=== PATIENT | male | born 2005 | race Caucasian/White ===

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

== ENCOUNTER 2025-06-23 18:57 | Inpatient (IN) ==
--- NOTE | 2025-06-23 19:22 | Emergency Department Note ---
Impression & Plan Depression with suicidal ideation, Drug abuse ED Provider Note NAME: LEANNE ALCARAZ AGE: 19 SEX: M : 2005 ARRIVES VIA: Walk-In INFORMANT: Patient, ED PROVIDER(S): Daniel Tariq DO CHIEF COMPLAINT: Mental health evaluation HPI: The patient is a 19-year-old male who presented to the emergency department for mental health evaluation. The patient was seen in our facility prior to this visit. He was just discharged and then registered back again. The patient was seen earlier because of epigastric pain. He was seen at an outside clinic. At that clinic visit the patient was felt to be overdosed on opiates. He received Narcan with good improvement of his symptoms. He was found to be bradycardic so 911 was called and the patient was evaluated in our emergency department. No obvious abnormalities were found on that evaluation. The patient was discharged home. The patient did admit to methamphetamine use at that time. Today he returns complaining of thoughts of self-harm. He is thinking about taking overdose of pills. He has been suffering from depression. ROS: See above HPI for pertinent positives & negatives. A total of 10 systems reviewed and were otherwise negative. PAST MEDICAL HISTORY: See Below PAST SURGICAL HISTORY: See Below FAMILY HISTORY: See Below SOCIAL HISTORY: See Below HOME MEDICATIONS: See Below ALLERGIES: See Below VITALS: See Below PHYSICAL EXAMINATION: GENERAL: Patient is awake alert in no acute distress patient is resting comfortably and showing no signs of anxiety EYES: The conjunctivae are clear. The pupils are round and reactive. EARS, NOSE, MOUTH AND THROAT: The nose is without any evidence of any deformity. NECK: The neck is nontender and supple. RESPIRATORY: Normal respiratory effort is noted there is no evidence of wheezing rhonchi or rales CARDIOVASCULAR: Regular rate and rhythm noted there no murmurs rubs or gallops normal S1 normal S2. GASTROINTESTINAL: The abdomen is soft. Abdomen is nontender. MUSCULOSKELETAL/EXTREMITIES: There is no evidence of gross deformity full range of motion is noted in the hips and shoulders. SKIN: There is no obvious evidence of any rash. There are no petechiae, pallor or cyanosis noted. NEUROLOGIC: Patient is awake alert and oriented x3 strength is symmetric patellar reflexes are 2+ bilaterally PSYCH: The patient makes good eye contact mostly evaluation. The patient's affect is flat. Patient is currently admitting to suicidal ideation with a plan to take pills and overdose. MEDICAL DECISION MAKING: The patient is a 19-year-old male who presented to the emergency department for mental health evaluation. The patient was recently discharged in our facility. He returned because of depression and suicidal ideation. The patient does have some drug use history. It is possible he was using drugs earlier today which prompted his treatment with Narcan prior to arrival on his initial visit. I discussed patient's laboratory results with him. He was medically cleared in the emergency department. He was evaluated by the mental-health case assistant. He was felt to be a good candidate for inpatient management. He was evaluated by the delegate from [facility] S. and ultimately was excepted for inpatient management. Triage Nursing notes reviewed. Prior medical records reviewed Vital Signs: reviewed and remarkable for no significant abnormalities Differential diagnosis: Mood disorder, infection, hypoglycemia, electrolyte abnormalities, cardiac sources, intracerebral event, toxicologic, trauma, neurologic, as well as other pathologies. ER treatment provided: See below Diagnostics interpreted by me: ECG: none Laboratory studies: As stated above and show below. Imaging studies: See below. Consultation(s): I discussed this case with the emergency departmental health case assistant. Patient was evaluated by the mental health case assistant. The patient was felt to be a good candidate for inpatient management. He was evaluated by the delegate from [facility]. He was excepted on 3 S. for inpatient management. Past Med/Surg History Problem List (Updated 06/23/25 @ 22:08 by Daniel Tariq DO) Drug abuse (Acute) Depression with suicidal ideation (Acute) Methamphetamine abuse (Acute) Epigastric abdominal pain (Acute) Constipation (Acute) Nausea & vomiting (Acute) Medical History Methamphetamine abuse Depression Social History Smoking Status: Current every day smoker Tobacco Type: Cigarettes and E-cigarettes / Vaping Preferred Language: Ivorian Feels Safe at Home: Yes Gender Identity: Male Allergies Allergies Allergy/AdvReac Type Severity Reaction Status Date / Time PEANUTS Allergy Intermediate SWELLING/HI Uncoded 12/08/16 03:56 VES Home Meds Home Medications Medication Instructions Recorded Confirmed No Known Home Medications 11/23/23 11/23/23 Results & Data (ED) Vital Signs Vital Signs - 24 hr 06/23/25 19:00 06/23/25 19:25 06/23/25 21:38 Temperature 36 C L Temperature Source Temporal Artery Scan Pulse Rate 52 L Pulse Rate [Finger] 48 L 45 L Pulse Rhythm [Finger] Regular Regular Pulse Strength [Finger] Normal Normal Respiratory Rate 18 17 16 Respiratory Effort / Characteristics Non-Labored Spontaneous Non-Labored Spontaneous Non-Labored Respiratory Depth Normal Normal Normal Respiratory Pattern Regular Regular Blood Pressure 137/82 Blood Pressure [Left Arm] 107/59 L 116/65 Blood Pressure Mean 100 Blood Pressure Mean [Left Arm] 75 82 Blood Pressure Position [Left Arm] Sitting Sitting Pulse Oximetry 98 98 99 Oxygen Delivery Method Room Air Room Air Room Air Sepsis Recent Fever Within 48 Hours No Sepsis New/Unexplained Change in Mental Status No Sepsis Action Taken by Nursing No Action Required Home Medications Current Medication List: was personally reviewed by me Laboratory Data Attestation: I reviewed the patient's lab results. 06/23/25 19:20 06/23/25 19:20 Lab Results 06/23/25 06/23/25 06/23/25 Range/Units 19:06 19:20 Unknown WBC 5.92 (4.8-10.8) K/ul RBC 5.45 (4.70-6.10) M/uL Hgb 15.7 (14.0-18.0) g/dL Hct 47.0 (42.0-52.0) % MCV 86.2 (80.0-100.0) fL MCH 28.8 (25.0-34.0) pg MCHC 33.4 (32.0-36.0) g/dL RDW Std Deviation 43.8 (36.4-46.3) fL RDW Coeff of Kip 13.9 (11.5-14.5) % Plt Count 271 (130-400) K/uL MPV 10.6 (9.4-12.4) fL Immature Gran % (Auto) 0.3 % Neut % (Auto) 73.5 % Lymph % (Auto) 21.1 % [place] % (Auto) 4.4 % Eos % (Auto) 0.2 % Baso % (Auto) 0.5 % Neut # (Auto) 4.35 (1.40-6.50) K/uL Lymph # (Auto) 1.25 (1.20-3.40) K/uL [place] # (Auto) 0.26 (0.11-0.59) K/uL Eos # (Auto) 0.01 (0.00-0.50) K/uL Baso # (Auto) 0.03 (0.00-0.20) K/uL Immature Gran # (Auto) 0.02 (0.01-0.20) K/uL Sodium 139 (136-145) mmol/L Potassium 4.1 (3.5-5.1) mmol/L Chloride 107 (98-107) mmol/L Carbon Dioxide 24 (21-32) mmol/L Anion Gap 8 (3-11) BUN 20 (6-23) mg/dl Creatinine 0.80 (0.6-1.4) mg/dl Est Cr Clr Drug Dosing 129.8 ml/min eGFR 129.93 BUN/Creatinine Ratio 25.0 H (10-20) Glucose 91 (70-99(Fasting)) mg/dl Calcium 9.4 (8.6-10.3) mg/dl Total Bilirubin 0.8 (0.2-1.0) mg/dl AST 27 (13-39) U/L ALT 19 (7-52) U/L Alkaline Phosphatase 130 H (34-104) U/L Total Protein 7.7 (6.0-8.3) gm/dl Albumin 4.5 (3.4-5.0) gm/dl Globulin 3.2 (2.5-4.0) gm/dl Albumin/Globulin Ratio 1.4 (0.9-2) TSH 0.534 (0.300-4.500) uIu/ml Urine Color Yellow Urine Appearance Clear (Clear) Urine pH 5.5 (4.5-7.5) Ur Specific [place] 1.031 H (1.000-1.030) Urine Protein Trace H (Negative) Urine Glucose (UA) Negative (Negative) Urine Ketones 3+ H (Negative) Urine Blood Negative (Negative) Urine Nitrite Negative (Negative) Urine Bilirubin Negative (Negative) Urine Urobilinogen Negative (Negative) Ur Leukocyte Esterase Negative (Negative) Urine WBC (Auto) 0-5 (0-5) /hpf Urine RBC (Auto) 0-2 (0-2) /hpf U Hyaline Cast (Auto) 0-2 (0-2) /lpf U Epithel Cells (Auto) 0-2 (0-2) /hpf Urine Bacteria (Auto) None Seen (None Seen) Urine Comment Salicylates < 3.0 L (3.0-30) mg/dl Urine Opiates Screen Neg (Neg) Ur Methadone, Qual Neg (Neg) Urine Fentanyl Screen Neg (Neg) Acetaminophen < 3 L (10-30) ug/ml Urine Barbiturates Neg (Neg) Ur Phencyclidine (PCP) Neg (Neg) U Amphetamin/Meth Scrn Pos H (Neg) MDMA (Ecstasy) Screen Neg (Neg) U Benzodiazepines Scrn Neg (Neg) Ur Cocaine Metabolite Neg (Neg) U Marijuana (THC) Screen Pos H (Neg) Ethyl Alcohol mg/dL < 10.0 (<10.0) mg/dl SARS-CoV-2, RNA, NAAT NEGATIVE (NEGATIVE) Administered Medications Nicotine Polacrilex (Nicotine Polacrilex 2 Mg Gum) 1 piece MT Q2H PRN PRN Reason: Anxiety/Agitation Stop: 07/23/25 19:54 Last Admin: 06/23/25 20:02 Dose: 1 piece Documented By: KMS Discharge Plan Visit Data Chief Complaint: Mental Health Evaluation Stated Complaint: MENTAL HEALTH EVAL ED Provider: Daniel Tariq Discharge Problem: Depression with suicidal ideation, Drug abuse Patient Disposition: Being Evaluated by Hospitalist Condition: Fair Forms Stand Alone Forms: My [facility], Suicide Prevention Resources Prescriptions Prescriptions: No Action No Known Home Medications Referrals Referrals: PCP,NO [Primary Care Provider] -
[2025-06-23 19:30] LABS: Appearance Urine Clear (Clear); Bacteria Urine Automated None Seen (None Seen); Cast Urine Automated 0-2 /lpf (0-2); Epithelial Cell Urine Auto 0-2 /hpf (0-2); Glucose Urine UA Negative (Negative); RBC Urine Automated 0-2 /hpf (0-2); WBC Urine Automated 0-5 /hpf (0-5)
[2025-06-23 19:34] LABS: Hematocrit (blood only) 47.0 % (42.0-52.0); Hemoglobin 15.7 g/dL (14.0-18.0); Immature Granulocytes # (auto) 0.02 K/uL (0.01-0.20); Immature Granulocytes % (auto) 0.3 %; Mean Corpuscular Hemoglobin 28.8 pg (25.0-34.0); Mean Corpuscular Volume 86.2 fL (80.0-100.0); Platelet Count 271 K/uL (130-400); RDW Standard Deviation 43.8 fL (36.4-46.3); Red Blood Count 5.45 M/uL (4.70-6.10); White Blood Count 5.92 K/ul (4.8-10.8)
[2025-06-23 19:51] LABS: Albumin Level 4.5 gm/dl (3.4-5.0); Anion Gap 8.0 (3-11); Bilirubin,Total 0.8 mg/dl (0.2-1.0); Calcium 9.4 mg/dl (8.6-10.3); Carbon Dioxide 24.0 mmol/L (21-32); Chloride 107.0 mmol/L (98-107); Potassium 4.1 mmol/L (3.5-5.1); Sodium 139.0 mmol/L (136-145)
[2025-06-23 19:58] LABS: Alanine Aminotransferase 19.0 U/L (7-52); Albumin Globulin Ratio 1.4 (0.9-2); Alkaline Phosphatase 130.0 U/L (34-104); Blood Urea Nitrogen 20.0 mg/dl (6-23); Creatinine Clr Calc Pharmacy 129.8 ml/min; Globulin 3.2 gm/dl (2.5-4.0); Glucose 91.0 mg/dl (70-99(Fasting)); Total Protein 7.7 gm/dl (6.0-8.3)
[2025-06-23] MEDS: NICOTINE POLACRILEX 2 MG GUM MT PRN (20:02)
[2025-06-23 20:04] LABS: Acetaminophen < 3 ug/ml (10-30); Salicylate < 3.0 mg/dl (3.0-30)
[2025-06-23 20:04] LABS: Amphetamines+Metham, Urine Pos (Neg); MDMA (Ecstacy), Urine Neg (Neg); Marijuana, Urine Pos (Neg)
[2025-06-23 20:06] LABS: Thyroid Stimulating Hormone 0.534 uIu/ml (0.300-4.500)
[2025-06-23] MEDS ORDERED: ACETAMINOPHEN 325 MG TAB PO PRN (22:57)
[2025-06-23] MEDS ORDERED: SODIUM CHLORIDE 0.65% NA SOLN 45 ML (OCEAN) PRN (22:57)
[2025-06-24] MEDS: NICOTINE 21 MG/24 HR TDSY TD SCH (09:14)
[2025-06-24] MEDS: REMOVE NICODERM PATCH SCH (09:17)
[2025-06-24] MEDS: NICOTINE POLACRILEX 2 MG GUM MT PRN (09:18)
[2025-06-24] MEDS: INFLUENZA VACC TS2025-26(6m+)/PF (IIV3) 0.5mL Syr IM ONE (14:12)
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
[2025-06-25 08:55] LABS: Hep B Surface Ag with confirm Negative (Negative)
[2025-06-25 09:01] LABS: Hep C Ab Rflx HepCQuant RNA Negative (Negative)
[2025-06-25] MEDS: CHOLECALCIFEROL 25 MCG (1000 UNITS) TAB PO SCH (11:49)
[2025-06-25] MEDS: PNEUMOCOCCAL VACCINE (PCV20) 20-VAL CONJ-DIP CRM/PF 0.5 ML SYR IM ONE (11:50)
--- NOTE | 2025-06-25 17:27 | Psychiatric Progress Note ---
Date of Service June 25, 2025 Impression / Recommendations Impression LEANNE ALCARAZ is a 19-year-old M who currently lives with friend, has a history of stimulant use disorder, and was admitted on 06/23/25 21:41 on a 201 voluntary commitment for suicidal ideation. Presentation concerning for major depressive disorder, methamphetamine use disorder. Patient presents with recurrent relapse in the setting of low mood and suicidal ideation. Recent inpatient rehab. Currently patient is not interested in inpatient rehab. He is future oriented. Would benefit from connection to medical assistance, outpatient therapy, case management. A: Patient sleeping well and engaging in groups. Tolerating medication changes well. Today we discussed the trans theoretical stages of change model and he appears to be in the contemplative stage. Conducted relapse prevention training and identified low moods as a trigger for continued drug-seeking and poor environment to avoid impulses. Labs resulted with unremarkable HIV, hepatitis B, hepatitis C, vitamin B 12 with a low normal vitamin D. Overall, I spent a total of 30 minutes with this case including review of chart records, nursing report, review of lab work, direct evaluation of the patient at bedside, counseling the patient, multidisciplinary team meeting, orders, and documentation in the electronic health record. (1) Depression with suicidal ideation: (2) Methamphetamine use disorder, severe, dependence: (3) Insomnia: (4) Epigastric abdominal pain: Plan 06/25/2025: Start vitamin D 25 mcg daily 06/24/2025:The patient was admitted to the [facility]) on q15 min checks (behavioral with suicide precautions) for safety. The patient will participate in group, recreational, and milieu therapies and will be offered additional individual and family sessions as clinically appropriate. Start bupropion 150 mg XL daily Start trazodone 50 mg at bedtime Labs: HIV antigen antibody, hepatitis C, hepatitis B, vitamin D, vitamin B12 Inventory Assets Strengths: recent sobriety, future oriented Needs: outpatient connection, improved insight regarding substance use Suicide Risk Level Suicide Risk Level: Low (q15 min observation checks) Risk Factors Assessment Male: Yes : Yes Do You Have Access To A Gun?: No Health Problems: No Mental Health Diagnoses: Yes Substance Use Disorders: Yes Previous Attempt: No Family History of Suicide: Yes Previous Psychiatric Hospitalization: Yes Hopelessness: No Protective Factors Assessment Orthodoxy Beliefs: No : No Responsible for Young Children: No Employed: No Stable Relationships: No Supportive Family: No Good Rapport with Provider: Yes Absence of Any Risk Factors Above: No Interval History Identifying Information LEANNE ALCARAZ is a 19-year-old M who currently lives with friend, has a history of stimulant use disorder, and was admitted on 06/23/25 21:41 on a 201 voluntary commitment for suicidal ideation. Chief Complaint Anxiety Review of Systems Sleep Information Total Hours of Sleep: 9 Meal Information Percent Meal Consumed - Breakfast: 100 Percent Meal Consumed - Lunch: 90 Percent Meal Consumed - Dinner: 100 Subjective Subjective Patient was seen & assessed and interval progress reviewed with treatment team nursing and social work Overnight slept well. Tolerating Wellbutrin. In the past took Wellbutrin 200 mg and it worked well. Reports feeling more motivated when on this medication. Endorses 2-week period of sobriety prior to recent relapse and denies any withdrawal symptoms from methamphetamine. Reports prior to this relapse he was feeling low and had made some money from selling marijuana. He called a friend through his contact list on the phone and went to get some methamphetamine. It was late at night and he wanted to get some sleep and tried the methamphetamine the following morning. Physical Exam Mental Examination Appearance: Unkempt (face tattoos saying "Loyalty". orange colored hair) and Disheveled Eye Contact: Maintains Eye Contact Motor Behavior: Restless (slightly) Speech: Normal Mood: Depressed, Calm and Sad Affect: Calm, Constricted and Sad Thought Process: Intact Thought Content: Intact and Linear Hallucinations: None Insight: Fair Judgement: Poor (recurrent meth relapse) Vital Signs (Past 24 Hours) Last Vital Signs Temp 36.3 C L 06/25/25 06:24 Pulse 66 06/25/25 06:25 Resp 16 06/25/25 06:24 BP 101/55 L 06/25/25 06:25 Pulse Ox 97 06/24/25 06:26 O2 Del Method Room Air 06/24/25 06:26 Results & Data ([facility]) Laboratory Results Laboratory Results - last 24 hr 06/25/25 07:00 Vitamin B12 354 25-OH Vitamin D Total 23.3 Hep Bs Antigen Negative Hepatitis C Antibody Negative HIV 1&2 Ab/P24 Ag 4thGn Negative Current Inpatient Medications Current Inpatient Medications: Current Inpatient Medications Acetaminophen (Acetaminophen 325 Mg Tab) 650 mg PO Q4H PRN PRN Reason: Headache or Minor Fever Stop: 07/23/25 22:56 Al Hydrox/Mg Hydrox/Simethicone (Aluminum/Magnesium Susp 30 Ml Udc) 30 ml PO Q4H PRN PRN Reason: GI Upset Stop: 07/23/25 22:56 Bismuth Subsalicylate (Bismuth Subsalicylate 262 Mg Chew) 2 tab PO Q30M PRN PRN Reason: Loose Stool/Diarrhea Stop: 07/23/25 22:56 Bupropion HCl (Bupropion Xl 150 Mg Tabcr) 150 mg PO QAM [facility] Stop: 07/24/25 12:44 Last Admin: 06/25/25 08:41 Dose: 150 mg Hydroxyzine HCl (Hydroxyzine Hcl 25 Mg Tab) 50 mg PO HSZ PRN PRN Reason: Insomnia Stop: 07/23/25 22:56 Hydroxyzine HCl (Hydroxyzine Hcl 25 Mg Tab) 25 mg PO Q4H PRN PRN Reason: Anxiety Stop: 07/23/25 22:56 Magnesium Hydroxide (Magnesium Hydroxide Susp 30 Ml Udc) 30 ml PO DAILY PRN PRN Reason: Constipation Stop: 07/23/25 22:56 Miscellaneous (Remove Nicoderm Patch) 1 each N/A DAILY@0859 [facility] Stop: 07/24/25 08:58 Last Admin: 06/25/25 08:49 Dose: 1 each Nicotine (Nicotine 21 Mg/24 Hr Tdsy) [facility] Stop: 07/24/25 08:59 Last Admin: 06/25/25 08:41 Dose: 1 patch Nicotine Polacrilex (Nicotine Polacrilex 2 Mg Gum) 2 piece MT PRN PRN PRN Reason: Nicotine Withdrawal Symptoms Stop: 07/23/25 22:56 Last Admin: 06/25/25 17:08 Dose: 2 piece Sodium Chloride (Sodium Chloride 0.65% Na Soln 45 Ml ([place])) 1 - 2 sprays NA PRN PRN PRN Reason: Nasal Dryness/Congestion Stop: 07/23/25 22:56 Trazodone HCl (Trazodone Hcl 50 Mg Tab) 50 mg PO HS RUBÉN Stop: 07/24/25 21:59 Last Admin: 06/24/25 21:13 Dose: 50 mg Vitamin D (Cholecalciferol 25 Mcg (1000 Units) Tab) 25 mcg PO QAM RUBÉN Stop: 07/25/25 10:29 Last Admin: 06/25/25 11:49 Dose: 25 mcg
[2025-06-25] MEDS: HYDROCORTISONE 2.5% OINT 20 GM TUBE EXT PRN (21:10)
--- NOTE | 2025-06-26 12:50 | Psychiatric Progress Note ---
Date of Service June 26, 2025 Impression / Recommendations Impression LEANNE ALCARAZ is a 19-year-old M who currently lives with friend, has a history of stimulant use disorder, and was admitted on 06/23/25 21:41 on a 201 voluntary commitment for suicidal ideation. Presentation concerning for major depressive disorder, methamphetamine use disorder. Patient presents with recurrent relapse in the setting of low mood and suicidal ideation. Recent inpatient rehab. Currently patient is not interested in inpatient rehab. He is future oriented. Would benefit from connection to medical assistance, outpatient therapy, case management. A: Patient presenting sleep dysfunction and emotional dysregulation this morning regarding his medications. Concern for Wellbutrin impacting sleep and will switch to sustained-release formulation and will uptitrate trazodone at night. He is future oriented. Discussed relapse prevention strategies and mindfulness. Overall, I spent a total of 30 minutes with this case including review of chart records, nursing report, review of lab work, direct evaluation of the patient at bedside, counseling the patient, multidisciplinary team meeting, orders, and documentation in the electronic health record. (1) Depression with suicidal ideation: (2) Methamphetamine use disorder, severe, dependence: (3) Insomnia: (4) Epigastric abdominal pain: Plan 06/26/2025: Switch Wellbutrin XL to bupropion 200 mg sustained-release Increase trazodone to 100 mg at bedtime 06/25/2025: Start vitamin D 25 mcg daily 06/24/2025:The patient was admitted to the [facility] ([facility]) on q15 min checks (behavioral with suicide precautions) for safety. The patient will participate in group, recreational, and milieu therapies and will be offered additional individual and family sessions as clinically appropriate. Start bupropion 150 mg XL daily Start trazodone 50 mg at bedtime Labs: HIV antigen antibody, hepatitis C, hepatitis B, vitamin D, vitamin B12 Inventory Assets Strengths: recent sobriety, future oriented Needs: outpatient connection, improved insight regarding substance use Suicide Risk Level Suicide Risk Level: Low (q15 min observation checks) Risk Factors Assessment Male: Yes : Yes Do You Have Access To A Gun?: No Health Problems: No Mental Health Diagnoses: Yes Substance Use Disorders: Yes Previous Attempt: No Family History of Suicide: Yes Previous Psychiatric Hospitalization: Yes Hopelessness: No Protective Factors Assessment Muslim Beliefs: No : No Responsible for Young Children: No Employed: No Stable Relationships: No Supportive Family: No Good Rapport with Provider: Yes Absence of Any Risk Factors Above: No Interval History Identifying Information LEANNE ALCARAZ is a 19-year-old M who currently lives with friend, has a history of stimulant use disorder, and was admitted on 06/23/25 21:41 on a 201 voluntary commitment for suicidal ideation. Chief Complaint Insomnia, emotional dysregulation Review of Systems Sleep Information Total Hours of Sleep: 8 Meal Information Percent Meal Consumed - Breakfast: 100 Percent Meal Consumed - Lunch: 90 Percent Meal Consumed - Dinner: 100 Subjective Subjective Patient was seen & assessed and interval progress reviewed with treatment team nursing and social work Rates mood 10 out of 10 yesterday. Upset this morning when he did not get a higher dose of Wellbutrin. He reports waking up 5-6 times last night and had trouble both falling asleep and staying asleep. Endorses a fair appetite. Reports past mirtazapine for sleep and was somewhat effective. Was on a higher dose of trazodone before. Denies feeling anxious. Presents a plan to get an ID and find a job after discharge. Physical Exam Mental Examination Appearance: Unkempt (face tattoos saying "Loyalty". orange colored hair) and Disheveled Eye Contact: Maintains Eye Contact Motor Behavior: Restless (slightly) Speech: Normal Mood: Depressed, Calm and Sad Affect: Calm, Constricted and Sad Thought Process: Intact Thought Content: Intact and Linear Hallucinations: None Insight: Fair Judgement: Poor (recurrent meth relapse) Vital Signs (Past 24 Hours) Last Vital Signs Temp 36.6 C 06/26/25 06:00 Pulse 58 L 06/26/25 06:05 Resp 18 06/26/25 06:00 BP 116/66 06/26/25 06:05 Pulse Ox 99 06/26/25 06:00 O2 Del Method Room Air 06/26/25 06:00 Results & Data ([facility]) Current Inpatient Medications Current Inpatient Medications: Current Inpatient Medications Acetaminophen (Acetaminophen 325 Mg Tab) 650 mg PO Q4H PRN PRN Reason: Headache or Minor Fever Stop: 07/23/25 22:56 Al Hydrox/Mg Hydrox/Simethicone (Aluminum/Magnesium Susp 30 Ml Udc) 30 ml PO Q4H PRN PRN Reason: GI Upset Stop: 07/23/25 22:56 Bismuth Subsalicylate (Bismuth Subsalicylate 262 Mg Chew) 2 tab PO Q30M PRN PRN Reason: Loose Stool/Diarrhea Stop: 07/23/25 22:56 Bupropion HCl (Bupropion Sr 100 Mg Tabcr) 200 [facility] Stop: 07/27/25 08:59 Hydrocortisone (Hydrocortisone 2.5% Oint 20 Gm Tube) 1 appln EXT QID PRN PRN Reason: Rash Stop: 07/25/25 20:26 Last Admin: 06/26/25 11:07 Dose: 1 appln Hydroxyzine HCl (Hydroxyzine Hcl 25 Mg Tab) 50 mg PO HSZ PRN PRN Reason: Insomnia Stop: 07/23/25 22:56 Hydroxyzine HCl (Hydroxyzine Hcl 25 Mg Tab) 25 mg PO Q4H PRN PRN Reason: Anxiety Stop: 07/23/25 22:56 Magnesium Hydroxide (Magnesium Hydroxide Susp 30 Ml Udc) 30 ml PO DAILY PRN PRN Reason: Constipation Stop: 07/23/25 22:56 Miscellaneous (Remove Nicoderm Patch) 1 each N/A DAILY@0859 [facility] Stop: 07/24/25 08:58 Last Admin: 06/26/25 09:12 Dose: 1 each Nicotine (Nicotine 21 Mg/24 Hr Tdsy) 1 patch TD [facility] Stop: 07/24/25 08:59 Last Admin: 06/26/25 09:12 Dose: 1 patch Nicotine Polacrilex (Nicotine Polacrilex 2 Mg Gum) 2 piece MT PRN PRN PRN Reason: Nicotine Withdrawal Symptoms Stop: 07/23/25 22:56 Last Admin: 06/26/25 08:59 Dose: 2 piece Sodium Chloride (Sodium Chloride 0.65% Na Soln 45 Ml ([place])) 1 - 2 sprays NA PRN PRN PRN Reason: Nasal Dryness/Congestion Stop: 07/23/25 22:56 Trazodone HCl (Trazodone Hcl 100 Mg Tab) 100 mg PO HS RUBÉN Stop: 07/26/25 21:59 Vitamin D (Cholecalciferol 25 Mcg (1000 Units) Tab) 25 mcg PO [facility] [place] Stop: 07/25/25 10:29 Last Admin: 06/26/25 08:48 Dose: 25 mcg
[2025-06-26] MEDS: ALBUTEROL HFA 8 GM INHALER INH PRN (18:12)
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
[2025-06-27] MEDS: ALUMINUM/MAGNESIUM SUSP 30 ML UDC PO PRN (15:31)
--- NOTE | 2025-06-28 12:38 | Psychiatric Progress Note ---
Date of Service June 28, 2025 Impression / Recommendations Impression LEANNE ALCARAZ is a 19-year-old M who currently lives with friend, has a history of stimulant use disorder, and was admitted on 06/23/25 21:41 on a 201 voluntary commitment for suicidal ideation. Presentation concerning for major depressive disorder, methamphetamine use disorder. Patient presents with recurrent relapse in the setting of low mood and suicidal ideation. Recent inpatient rehab. Currently patient is not interested in inpatient rehab. He is future oriented. Would benefit from connection to medical assistance, outpatient therapy, case management. A: Overnight patient has been more hyperactive and restless. Tolerating low- dose clonidine well. Plan to optimize clonidine dose and to start atomoxetine as a nonstimulant treatment for patient's hyperactivity. Patient is future oriented and we are establishing outpatient follow-up. Overall, I spent a total of 30 minutes with this case including review of chart records, nursing report, review of lab work, direct evaluation of the patient at bedside, counseling the patient, multidisciplinary team meeting, orders, and documentation in the electronic health record. (1) Depression with suicidal ideation: (2) Methamphetamine use disorder, severe, dependence: (3) ADHD, predominantly hyperactive-impulsive subtype: (4) Insomnia: (5) Epigastric abdominal pain: Plan 06/28/2025: Start atomoxetine 40 mg daily Increase clonidine to 0.1 mg at bedtime 06/27/2025: Continue medications and treatment plan 06/26/2025: Switch Wellbutrin XL to bupropion 200 mg sustained-release Increase trazodone to 100 mg at bedtime 06/25/2025: Start vitamin D 25 mcg daily 06/24/2025:The patient was admitted to the [facility] ([facility]) on q15 min checks (behavioral with suicide precautions) for safety. The patient will participate in group, recreational, and milieu therapies and will be offered additional individual and family sessions as clinically appropriate. Start bupropion 150 mg XL daily Start trazodone 50 mg at bedtime Labs: HIV antigen antibody, hepatitis C, hepatitis B, vitamin D, vitamin B12 Inventory Assets Strengths: recent sobriety, future oriented Needs: outpatient connection, improved insight regarding substance use Suicide Risk Level Suicide Risk Level: Low (q15 min observation checks) Risk Factors Assessment Male: Yes : Yes Do You Have Access To A Gun?: No Health Problems: No Mental Health Diagnoses: Yes Substance Use Disorders: Yes Previous Attempt: No Family History of Suicide: Yes Previous Psychiatric Hospitalization: Yes Hopelessness: No Protective Factors Assessment Judaism Beliefs: No : No Responsible for Young Children: No Employed: No Stable Relationships: No Supportive Family: No Good Rapport with Provider: Yes Absence of Any Risk Factors Above: No Interval History Identifying Information LEANNE ALCARAZ is a 19-year-old M who currently lives with friend, has a history of stimulant use disorder, and was admitted on 06/23/25 21:41 on a 201 voluntary commitment for suicidal ideation. Chief Complaint Anxiety, restlessness Review of Systems Sleep Information Total Hours of Sleep: 6.5 Meal Information Percent Meal Consumed - Breakfast: 10 Percent Meal Consumed - Lunch: 90 Percent Meal Consumed - Dinner: 90 Subjective Subjective Patient was seen & assessed and interval progress reviewed with treatment team nursing and social work Overnight has been irritable and restless at times. Slept 6.5 hours. Eating well. On interview he reports uninterrupted sleep. Reports some a.m. grogginess and believes it is from trazodone. Denies SI. Presents a plan to return home, get his ID. Asking about ADHD medication. Physical Exam Mental Examination Appearance: Unkempt (face tattoos saying "Loyalty". orange colored hair) and Disheveled Eye Contact: Maintains Eye Contact Motor Behavior: Restless (slightly) Speech: Normal Mood: Depressed, Calm and Sad Affect: Calm, Constricted and Sad Thought Process: Intact Thought Content: Intact and Linear Hallucinations: None Insight: Fair Judgement: Poor (recurrent meth relapse) Vital Signs (Past 24 Hours) Last Vital Signs Temp 37.5 C 06/28/25 06:25 Pulse 54 L 06/28/25 06:25 Resp 20 06/28/25 06:25 BP 102/61 06/28/25 06:25 Pulse Ox 97 06/28/25 06:25 O2 Del Method Room Air 06/28/25 06:25 Results & Data ([facility]) Current Inpatient Medications Current Inpatient Medications: Current Inpatient Medications Acetaminophen (Acetaminophen 325 Mg Tab) 650 mg PO Q4H PRN PRN Reason: Headache or Minor Fever Stop: 07/23/25 22:56 Al Hydrox/Mg Hydrox/Simethicone (Aluminum/Magnesium Susp 30 Ml Udc) 30 ml PO Q4H PRN PRN Reason: GI Upset Stop: 07/23/25 22:56 Last Admin: 06/28/25 09:48 Dose: 30 ml Albuterol (Albuterol Hfa 8 Gm Inhaler) 2 puffs INH QID PRN PRN Reason: Shortness Of Breath Or Wheezing Stop: 07/26/25 17:28 Last Admin: 06/26/25 18:12 Dose: 2 puffs Bismuth Subsalicylate (Bismuth Subsalicylate 262 Mg Chew) 2 tab PO Q30M PRN PRN Reason: Loose Stool/Diarrhea Stop: 07/23/25 22:56 Bupropion HCl (Bupropion Sr 100 Mg Tabcr) 200 mg PO QAM [facility] Stop: 07/27/25 08:59 Last Admin: 06/28/25 09:20 Dose: 200 mg Clonidine HCl (Clonidine Hcl 0.1 Mg Tab) 0.05 mg PO HS RUBÉN Stop: 07/27/25 21:59 Last Admin: 06/27/25 21:45 Dose: 0.05 mg Hydrocortisone (Hydrocortisone 2.5% Oint 20 Gm Tube) 1 appln EXT QID PRN PRN Reason: Rash Stop: 07/25/25 20:26 Last Admin: 06/26/25 11:07 Dose: 1 appln Hydroxyzine HCl (Hydroxyzine Hcl 25 Mg Tab) 50 mg PO HSZ PRN PRN Reason: Insomnia Stop: 07/23/25 22:56 Hydroxyzine HCl (Hydroxyzine Hcl 25 Mg Tab) 25 mg PO Q4H PRN PRN Reason: Anxiety Stop: 07/23/25 22:56 Last Admin: 06/27/25 15:31 Dose: 25 mg Magnesium Hydroxide (Magnesium Hydroxide Susp 30 Ml Udc) 30 ml PO DAILY PRN PRN Reason: Constipation Stop: 07/23/25 22:56 Miscellaneous (Remove Nicoderm Patch) 1 each N/A DAILY@0859 [facility] Stop: 07/24/25 08:58 Last Admin: 06/28/25 09:20 Dose: 1 each Nicotine (Nicotine 21 Mg/24 Hr Tdsy) 1 patch TD QAM [facility] Stop: 07/24/25 08:59 Last Admin: 06/28/25 09:20 Dose: 1 patch Nicotine Polacrilex (Nicotine Polacrilex 2 Mg Gum) 2 piece MT PRN PRN PRN Reason: Nicotine Withdrawal Symptoms Stop: 07/23/25 22:56 Last Admin: 06/28/25 10:09 Dose: 2 piece Sodium Chloride (Sodium Chloride 0.65% Na Soln 45 Ml ([place])) 1 - 2 sprays NA PRN PRN PRN Reason: Nasal Dryness/Congestion Stop: 07/23/25 22:56 Trazodone HCl (Trazodone Hcl 100 Mg Tab) 100 mg PO HS RUBÉN Stop: 07/26/25 21:59 Last Admin: 06/27/25 21:46 Dose: 100 mg Vitamin D (Cholecalciferol 25 Mcg (1000 Units) Tab) 25 mcg PO QA RUBÉN Stop: 07/25/25 10:29 Last Admin: 06/28/25 09:20 Dose: 25 mcg
[2025-06-28] MEDS: ATOMOXETINE HCL 25 MG CAPSULE PO SCH (13:01)
[2025-06-28] MEDS: MAGNESIUM HYDROXIDE SUSP 30 ML UDC PO PRN (17:16)
[2025-06-28] MEDS: BISMUTH SUBSALICYLATE 262 MG CHEW PO PRN (19:07)
--- NOTE | 2025-06-29 12:40 | Psychiatric Progress Note ---
Date of Service June 29, 2025 Impression / Recommendations Impression LEANNE ALCARAZ is a 19-year-old M who currently lives with friend, has a history of stimulant use disorder, and was admitted on 06/23/25 21:41 on a 201 voluntary commitment for suicidal ideation. Presentation concerning for major depressive disorder, methamphetamine use disorder. Patient presents with recurrent relapse in the setting of low mood and suicidal ideation. Recent inpatient rehab. Currently patient is not interested in inpatient rehab. He is future oriented. Would benefit from connection to medical assistance, outpatient therapy, case management. A: Patient presenting periods of emotional dysregulation. Has been sleeping well. No recent bowel movement and will order stimulant laxative. He is future oriented and presents a reasonable plan. Patient has Medicaid pending. Given cost of Strattera will discontinue and recommend to restart at a future time on an outpatient basis. Overall, I spent a total of 40 minutes with this case including review of chart records, nursing report, review of lab work, direct evaluation of the patient at bedside, counseling the patient, multidisciplinary team meeting, orders, and documentation in the electronic health record. (1) Depression with suicidal ideation: (2) Methamphetamine use disorder, severe, dependence: (3) ADHD, predominantly hyperactive-impulsive subtype: (4) Insomnia: (5) Epigastric abdominal pain: (6) Constipation: Plan 06/29/2025: Discontinue atomoxetine Dulcolax 5 mg 1 time 06/28/2025: Start atomoxetine 40 mg daily Increase clonidine to 0.1 mg at bedtime 06/27/2025: Continue medications and treatment plan 06/26/2025: Switch Wellbutrin XL to bupropion 200 mg sustained-release Increase trazodone to 100 mg at bedtime 06/25/2025: Start vitamin D 25 mcg daily 06/24/2025:The patient was admitted to the [facility] ([facility]) on q15 min checks (behavioral with suicide precautions) for safety. The patient will participate in group, recreational, and milieu therapies and will be offered additional individual and family sessions as clinically appropriate. Start bupropion 150 mg XL daily Start trazodone 50 mg at bedtime Labs: HIV antigen antibody, hepatitis C, hepatitis B, vitamin D, vitamin B12 Inventory Assets Strengths: recent sobriety, future oriented Needs: outpatient connection, improved insight regarding substance use Suicide Risk Level Suicide Risk Level: Low (q15 min observation checks) Risk Factors Assessment Male: Yes : Yes Do You Have Access To A Gun?: No Health Problems: No Mental Health Diagnoses: Yes Substance Use Disorders: Yes Previous Attempt: No Family History of Suicide: Yes Previous Psychiatric Hospitalization: Yes Hopelessness: No Protective Factors Assessment Congregational Beliefs: No : No Responsible for Young Children: No Employed: No Stable Relationships: No Supportive Family: No Good Rapport with Provider: Yes Absence of Any Risk Factors Above: No Interval History Identifying Information LEANNE ALCARAZ is a 19-year-old M who currently lives with friend, has a history of stimulant use disorder, and was admitted on 06/23/25 21:41 on a 201 voluntary commitment for suicidal ideation. Chief Complaint Emotional dysregulation Review of Systems Sleep Information Total Hours of Sleep: 7 Meal Information Percent Meal Consumed - Breakfast: 60 Percent Meal Consumed - Lunch: 50 Percent Meal Consumed - Dinner: 50 Subjective Subjective Patient was seen & assessed and interval progress reviewed with treatment team nursing and social work Slept well overnight with no disruptions. Complained of a.m. nausea and resolved. Reports no bowel movement in a week and last documented bowel movement was 06/26/2025. Reports at times feeling agitated and anxious and cites an example where somebody change the sound bar settings on the TV and he became angry and frustrated. We discussed emotional regulation and effective strategies. Presents a plan to undergo a case management intake on , get an ID, and return to his friend's place, and eventually get a job. Denies SI. Says he has no way of paying for his medications. Physical Exam Mental Examination Appearance: Unkempt (face tattoos saying "Loyalty". orange colored hair) and Disheveled Eye Contact: Maintains Eye Contact Motor Behavior: Restless (slightly) Speech: Normal Mood: Euthymic, Calm and Irritable Affect: Congruent and Constricted Thought Process: Intact Thought Content: Intact and Linear Hallucinations: None Insight: Fair Judgement: Poor (recurrent meth relapse, improved now and engaging on the unit) Vital Signs (Past 24 Hours) Last Vital Signs Temp 36.4 C L 06/29/25 06:00 Pulse 66 06/29/25 06:25 Resp 18 06/29/25 06:00 BP 102/60 06/29/25 06:25 Pulse Ox 97 06/28/25 06:25 O2 Del Method Room Air 06/28/25 06:25 Results & Data (U) Current Inpatient Medications Current Inpatient Medications: Current Inpatient Medications Acetaminophen (Acetaminophen 325 Mg Tab) 650 mg PO Q4H PRN PRN Reason: Headache or Minor Fever Stop: 07/23/25 22:56 Al Hydrox/Mg Hydrox/Simethicone (Aluminum/Magnesium Susp 30 Ml Udc) 30 ml PO Q4H PRN PRN Reason: GI Upset Stop: 07/23/25 22:56 Last Admin: 06/28/25 09:48 Dose: 30 ml Albuterol (Albuterol Hfa 8 Gm Inhaler) 2 puffs INH QID PRN PRN Reason: Shortness Of Breath Or Wheezing Stop: 07/26/25 17:28 Last Admin: 06/26/25 18:12 Dose: 2 puffs Bismuth Subsalicylate (Bismuth Subsalicylate 262 Mg Chew) 2 tab PO Q30M PRN PRN Reason: Loose Stool/Diarrhea Stop: 07/23/25 22:56 Last Admin: 06/28/25 19:07 Dose: 2 tab Bupropion HCl (Bupropion Sr 100 Mg Tabcr) 200 mg PO QAM RUBÉN Stop: 07/27/25 08:59 Last Admin: 06/29/25 08:32 Dose: 200 mg Clonidine HCl (Clonidine Hcl 0.1 Mg Tab) 0.1 mg PO HS RUBÉN Stop: 07/28/25 21:59 Last Admin: 06/28/25 21:21 Dose: 0.1 mg Hydrocortisone (Hydrocortisone 2.5% Oint 20 Gm Tube) 1 appln EXT QID PRN PRN Reason: Rash Stop: 07/25/25 20:26 Last Admin: 06/26/25 11:07 Dose: 1 appln Hydroxyzine HCl (Hydroxyzine Hcl 25 Mg Tab) 50 mg PO HSZ PRN PRN Reason: Insomnia Stop: 07/23/25 22:56 Hydroxyzine HCl (Hydroxyzine Hcl 25 Mg Tab) 25 mg PO Q4H PRN PRN Reason: Anxiety Stop: 07/23/25 22:56 Last Admin: 06/28/25 17:22 Dose: 25 mg Magnesium Hydroxide (Magnesium Hydroxide Susp 30 Ml Udc) 30 ml PO DAILY PRN PRN Reason: Constipation Stop: 07/23/25 22:56 Last Admin: 06/28/25 17:16 Dose: 30 ml Miscellaneous (Remove Nicoderm Patch) 1 each N/A DAILY@0859 [facility] Stop: 07/24/25 08:58 Last Admin: 06/29/25 08:35 Dose: Not Given Nicotine (Nicotine 21 Mg/24 Hr Tdsy) 1 patch TD QAM RUBÉN Stop: 07/24/25 08:59 Last Admin: 06/29/25 08:33 Dose: 1 patch Nicotine Polacrilex (Nicotine Polacrilex 2 Mg Gum) 2 piece MT PRN PRN PRN Reason: Nicotine Withdrawal Symptoms Stop: 07/23/25 22:56 Last Admin: 06/29/25 09:17 Dose: 2 piece Sodium Chloride (Sodium Chloride 0.65% Na Soln 45 Ml (F[place]man)) 1 - 2 sprays NA PRN PRN PRN Reason: Nasal Dryness/Congestion Stop: 07/23/25 22:56 Trazodone HCl (Trazodone Hcl 100 Mg Tab) 100 mg PO HS RUBÉN Stop: 07/26/25 21:59 Last Admin: 06/28/25 21:21 Dose: 100 mg Vitamin D (Cholecalciferol 25 Mcg (1000 Units) Tab) 25 mcg PO QAM RUBÉN Stop: 07/25/25 10:29 Last Admin: 06/29/25 08:32 Dose: 25 mcg Mental Health & Subst Abuse Tx Psychiatrist Name of Psychiatrist: Cesar [facility] [address] [place] [address] Psychiatrist's Psychiatric Appointment Comment: outlet manager will schedule intake appt for psychiatry Therapist Name of Therapist: Cesar [facility] [address] [place] [address] Therapist's Therapy Appointment Comment: outlet manager will schedule intake appt for therapy Breeding Technician Name of Breeding Technician: Base service unit counter caser Baylee Phone Number for Breeding Technician: [phone] Date of Appointment with Breeding Technician: 07/01/25 Time of Appointment with Breeding Technician: 9:30AM Case Management Appointment Comment: Baylee will meet you at your home
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
[2025-06-30] MEDS ORDERED: TRIAMCINOLONE ACET 0.1% CR 80 GM TUBE EXT PRN (11:45)
[2025-06-30] MEDS: TRIAMCINOLONE ACET 0.1% OINT 80 GM TUBE EXT PRN (12:30)
[2025-07-02 07:12] LABS: Amphetamine Urine, Confirm 2374 ng/mL (<250); Marijuana Quant, GCMS Urine 647 ng/mL (<5); Methamphetamine, Ur Confirm 3140 ng/mL (<250)
== END 2025-06-30 15:50 | disposition home or self-care (01) | DRG 881 ==
LOC: ED 18:57 → 3S 21:41